=== PATIENT | female | born 1955 | race Caucasian/White ===

== ENCOUNTER → 2019-08-20 | Outpatient (CLI) | payer BC ==
[~2019-08-20] MED LIST: AMIT10 PO; CHOL10002 PO; CYCL10 PO; FISH1000 PO; GLUCOSAMINE CH1 EAC3 PO; HYDMOR2 PO; IBUP800 PO; MULTI VITAMIN1 EACH PO; OXYACE5T PO; RXHYDMOR2 PO; RXONDA4ODT MM; TRAM50 PO
== END ==
LOC: LAB 14:44 → LAB SHORT 14:44
PROVIDERS: Nurse Practitioner Family
DX: Z01.419 Encounter for gynecological examination (general) (routine) without abnormal findings (principal)
CPT/HCPCS: G0145

== ENCOUNTER 2022-12-06 08:56 | Day surgery (SDC) | payer MEDICARE ==
[~2022-12-06] VITALS: Ht 182.9 cm; Wt 79.0 kg
[2022-12-06] MEDS ORDERED: ROSU5 (09:40)
[2022-12-06] MEDS ORDERED: TURMERIC ROOT5000 GM (09:41)
[2022-12-06 12:14] VITALS: BP 128/98
== END 2022-12-06 12:00 | disposition home or self-care (01) ==
LOC: ORSCSDS 08:56
PROVIDERS: Internal Medicine Gastroenterology
PROC: 0DBK8ZX Excision of Ascending Colon, Via Natural or Artificial Opening Endoscopic, Diagnostic (ICD-10-PCS; principal; 2022-12-06 10:30)
PROC: 0DBM8ZX Excision of Descending Colon, Via Natural or Artificial Opening Endoscopic, Diagnostic (ICD-10-PCS; principal; 2022-12-06 10:30)
PROC: 0DBP8ZX Excision of Rectum, Via Natural or Artificial Opening Endoscopic, Diagnostic (ICD-10-PCS; principal; 2022-12-06 10:30)
DX: Z12.11 Encounter for screening for malignant neoplasm of colon (principal); Z86.010 Personal history of colon polyps; D12.4 Benign neoplasm of descending colon; D12.2 Benign neoplasm of ascending colon; D12.8 Benign neoplasm of rectum; K63.5 Polyp of colon; K62.1 Rectal polyp; K57.30 Diverticulosis of large intestine without perforation or abscess without bleeding; F17.210 Nicotine dependence, cigarettes, uncomplicated; Z79.899 Other long term (current) drug therapy
CPT/HCPCS: 88305; J2704; J7120

== ENCOUNTER 2024-11-07 07:03 | Day surgery (SDC) | payer MEDICARE ==
[~2024-11-07] VITALS: Ht 180.3 cm; Wt 68.7 kg
[~2024-11-07 07:03] MED LIST changes: +ASPI81CH PO; -CHOL10002 PO; +FISH OIL 1,0001 EA10; +ROSU5 PO; +TURMERIC ROOT5000 GM PO; +VITAMIN D350 MC3 PO
[2024-11-07] MEDS ORDERED: Lactated Ringer's 1,000 ML IV SCH (07:35)
[2024-11-07] MEDS ORDERED: CeFAZolin Sodium 2,000 MG in NS 100 ML IV SCH (07:35)
[2024-11-07] MEDS ORDERED: propofoL 20 ML IV ONE (07:39)
[2024-11-07] MEDS ORDERED: FentaNYL Citrate 50 MCG/ML 2 ML Injection ONE (07:40)
[2024-11-07 07:41] VITALS: BP 146/81
[2024-11-07] MEDS ORDERED: CeFAZolin Sodium 2,000 MG VIAL ONE (07:56)
--- NOTE | 2024-11-07 08:15 | NUR ---
Ambulatory in Day Surgery Patient confirms NPO status and agrees with scheduled surgery. Pre-Op teaching done. Pt verbalizes understanding. History, Chart, Medications and Allergies reviewed before start of procedure. Patient reports completing Chlorhexadine shower X2 prior to admission to hospital.Patient States Post-Procedure ride home has been arranged.
[2024-11-07] MEDS ORDERED: Bupivacaine 0.5% HCl 5 MG/ML 30MLVIAL ONE ×2 (08:30→08:33)
[2024-11-07] MEDS ORDERED: Lidocaine HCl 4% 5 ML SDA ONE (08:32)
[2024-11-07] MEDS ORDERED: Ondansetron HCl 2 MG / ML 2ML Vial ONE (08:41)
[2024-11-07] MEDS ORDERED: Dexamethasone Sod Phos 10 MG/ML 1ML VIAL ONE (08:41)
[2024-11-07] MEDS ORDERED: Ketorolac Tromethamine 30mg Vial ONE (08:42)
[2024-11-07] MEDS ORDERED: Sugammadex Sodium 200 MG/2ML SDV (100 MG/ML) ONE (08:42)
[2024-11-07 09:35] VITALS: BP 100/66
[2024-11-07 09:40] VITALS: BP 123/80
[2024-11-07] MEDS ORDERED: HYDROcodone 5-APAP 325 TAB PO PRN (09:40)
[2024-11-07 09:45] VITALS: BP 128/79
[2024-11-07 09:59] VITALS: BP 145/85
[2024-11-07 10:15] VITALS: BP 147/78
--- NOTE | 2024-11-07 10:20 | NUR ---
1010: REPORT RECEIVED FROM ROBERTO CHILDS. VSS. PT ON RA. PT A&OX4. PT ABLE TO REPOSITION SELF IN BED. PT JEY PO FLUIDS. PT DENIES PAIN, NAUSEA OR OTHER DISCOMFORTS. PT HAS GAUZE/TEGADERM TO ABD THAT IS CDI. PT HAS SPOUSE AT BEDSIDE. Discharge instructions reviewed with patient AND HER SPOUSE. Patient verbalizes understanding. Copy given to patient to take home. 1020: Patient up to Ambulate independently. Gait steady. Discharged via wheelchair to private car for ride home. PT BELONGINGS RETURNED TO PT.
== END 2024-11-07 10:20 | disposition home or self-care (01) ==
LOC: ORSCMMR 07:03 → ORD 08:30 → ORSCMMR 08:30
PROVIDERS: Surgery
PROC: 0WUF0JZ Supplement Abdominal Wall with Synthetic Substitute, Open Approach (ICD-10-PCS; principal; 2024-11-07 08:30)
DX: K43.6 Other and unspecified ventral hernia with obstruction, without gangrene (principal); E78.5 Hyperlipidemia, unspecified
CPT/HCPCS: C1781; J0690; J1100; J1885; J2003; J2405; J2704; J3010; J7120

== ENCOUNTER 2025-05-12 08:26 | Day surgery (SDC) | payer MEDICARE ==
[2025-05-04 10:40] VITALS: BP 161/87
[~2025-05-12] VITALS: Ht 175.3 cm; Wt 74.3 kg
[2025-05-12] VITALS (10 sets, daily range): BP systolic 116–160; BP diastolic 64–89
[~2025-05-12 08:26] MED LIST changes: +ARTHRITIS PAIN150 GM TOP; +ROSUVASTATIN CAL5 MG PO
[2025-05-12] MEDS ORDERED: Metoclopramide HCl 5MG / ML 2ML Vial IV PRN (09:30)
[2025-05-12] MEDS ORDERED: Magnesium Hydroxide Conc 10 ML UDC PO PRN (09:35)
[2025-05-12] MEDS ORDERED: Ondansetron HCl 2 MG / ML 2ML Vial IV PRN ×2 (09:35→12:15)
[2025-05-12] MEDS ORDERED: HYDROmorphone HCl/Pf 1MG SYR IV PRN ×3 (09:35→12:20)
--- NOTE | 2025-05-12 09:39 | NUR ---
Pre-Op teaching done. Pt verbalizes understanding. Ambulatory in Day Surgery. History, Chart, Medications and Allergies reviewed before start of procedure. Patient confirms NPO status and agrees with scheduled surgery. Patient States Post-Procedure ride home has been arranged.
[2025-05-12] MEDS ORDERED: Tranexamic Acid 100 ML IV SCH (09:45)
[2025-05-12] MEDS ORDERED: CeFAZolin Sodium 2,000 MG in NS 100 ML IV SCH ×2 (09:45→21:00)
[2025-05-12] MEDS ORDERED: Ropivacaine 0.5% HCl/Pf 123.125 MG,EPINEPHrine HCL 0.25 MG,Ketorolac Tromethamine 15 MG... INFIL SCH (09:45)
[2025-05-12] MEDS ORDERED: Chlorhexidine Mouth Care 15 ML UDC MT SCH (09:45)
[2025-05-12] MEDS ORDERED: FLU VACC TS2025(65UP)/MF59C/PF 45 MCG/0.5 ML SYRINGE IM SCH (10:10)
[2025-05-12] MEDS ORDERED: Ketorolac Tromethamine 15mg Vial IV SCH (12:00)
[2025-05-12] MEDS ORDERED: Midazolam HCl 1MG / ML 2ML Vial ONE (12:14)
[2025-05-12] MEDS ORDERED: Albuterol 2.5 MG/3 ML VIAL INH PRN (12:15)
[2025-05-12] MEDS ORDERED: Midazolam HCl 1MG / ML 2ML Vial IV PRN (12:15)
[2025-05-12] MEDS ORDERED: FentaNYL Citrate 50 MCG/ML 2 ML Injection IV PRN ×2 (12:15)
[2025-05-12] MEDS ORDERED: ePHEDrine Sulfate 50 MG/ML 1ML Injection IV PRN (12:15)
[2025-05-12] MEDS ORDERED: Ondansetron HCl 2 MG / ML 2ML Vial ONE (13:02)
[2025-05-12] MEDS ORDERED: Dexamethasone Sod Phos 10 MG/ML 1ML VIAL ONE (13:02)
[2025-05-12] MEDS ORDERED: Ketorolac Tromethamine 30mg Vial ONE (13:02)
[2025-05-12] MEDS ORDERED: Bupivacaine 0.25% Epi 1:200000 30 ML Vial ONE (14:01)
[2025-05-12] MEDS ORDERED: Bupivacaine 0.5% W/EPI 1:200000 SDV 30 ML Vial ONE (14:02)
--- NOTE | 2025-05-12 15:36 | NUR ---
PT TO UNIT @1530 AXO4. VSS. ON RA. DENYING PAON. R KNEE SUTURE REMOVAL SITE WITH SCANT BLOOD TO DRESSING. L TKA SITE DRESSING WRAPPED WITH ACEWRAP AND COLD PACK. PT TOELRATING FOOD CURRENTLY. SPOUSE AT BEDSIDE.
--- NOTE | 2025-05-12 17:17 | NUR ---
NO ACUTE CHANGES POST ASSUMPTION OF CARE. VSS. AXO4. TOLERATING PO INTAKE. IS GETTING UP WITH PHYSICAL THERAPY CURRENTLY. DRESSINGS REMAINS CDI TO R LEG SUTURE REMOAL SITE AND L TKA SITE. PT HOPING TO GO HOME.
--- NOTE | 2025-05-12 18:14 | NUR ---
PHYSICAL THERAPT CLEARED PT TO DC. AWAITING PT TO VOID MORE THAN THE 75MLS THAT SHE HAS CURRENTLY. THEN PT CAN DC.
[2025-05-12] MEDS ORDERED: ASPI81CH PO (18:17)
--- NOTE | 2025-05-12 18:33 | NUR ---
PT VOIDED. DC INSTRUCTIONS PROVIDED TO PT. BELONGINGS PACKED UP. WILL PULL IV OUT WHEN DCING. WAITING RIDE FROM SON.
--- NOTE | 2025-05-12 18:47 | NUR ---
OLIVIER STRINGER'Reshma @1847 WITH SON
== END 2025-05-12 18:45 | disposition home or self-care (01) ==
LOC: ORSCMMR 08:26 → ORD 10:00 → ORSCMMR 10:00 → ORD 11:15 → SURS 15:23 → ORSCMMR 18:45
PROVIDERS: Orthopaedic Surgery
PROC: 0SRD0JA Replacement of Left Knee Joint with Synthetic Substitute, Uncemented, Open Approach (ICD-10-PCS; principal; 2025-05-12 12:00)
DX: M17.12 Unilateral primary osteoarthritis, left knee (principal); E78.00 Pure hypercholesterolemia, unspecified; Z79.899 Other long term (current) drug therapy; Z96.651 Presence of right artificial knee joint; Z87.891 Personal history of nicotine dependence
CPT/HCPCS: 73560-LT; 97110; 97116; 97161; 97530; A9270; C1713; C1776; J0166; J0690; J0735; J1100; J1885; J2250; J2405; J2704; J2795; J7120